=== PATIENT | female | born 1975 | race African-American/Black ===

== ENCOUNTER 2020-01-22 08:31 | Emergency (ER) | payer OTHER ==
[~2020-01-22] VITALS: Ht 170.2 cm; Wt 105.9 kg
[2020-01-22] MEDS ORDERED: MULT-264 PO (08:44)
[2020-01-22] MEDS ORDERED: TRAM50TA4 PO (08:44)
[2020-01-22] MEDS ORDERED: BACL10TA PO (08:44)
[2020-01-22 09:00] VITALS: BP 147/91
== END 2020-01-22 10:25 | disposition home or self-care (01) ==
LOC: EMS 08:35
DX: S13.4XXA Sprain of ligaments of cervical spine, initial encounter (principal); I10 Essential (primary) hypertension; Z79.899 Other long term (current) drug therapy; V49.40XA Driver injured in collision with unspecified motor vehicles in traffic accident, initial encounter; Y93.89 Activity, other specified; Y92.89 Other specified places as the place of occurrence of the external cause; Y99.8 Other external cause status